=== PATIENT | male | born 1985 | race Caucasian/White ===

== ENCOUNTER 2016-07-26 10:54 | Emergency (ER) | payer OTHER ==
[~2016-07-26] VITALS: Ht 182.9 cm; Wt 7.0 kg
[2016-07-26 10:55] VITALS: TEMP 36.6; Ht 182.9 cm; Wt 7.0 kg
[2016-07-26] MEDS ORDERED: XYLOCAINE 1%/SOD BICARB 20 ML VIAL INFIL ONE (11:15)
[2016-07-26] MEDS ORDERED: DIPHTHERIA/TETANUS/PERTUSSIS 0.5 ML SYR/VIAL IM. ONE (11:15)
[2016-07-26 11:41] VITALS: BP 131/79; PULSE 76; O2SAT 100
--- NOTE | 2016-07-26 16:58 | EMERGENCY ROOM VISIT NOTE ---
ED Visit Note First contact with patient: 11:01 Chief Complaint: Left thumb laceration. History of Present Illness: Mr. Webb is a 30-year-old white male who ambulates into the ED accompanied by his son complaining of a left thumb laceration just over the lateral aspect of the thenar eminence over the first metacarpal. Patient reports approximately 2 hours ago he was opening a box with a mathis' s knife that had its blade recently replaced and sustained a laceration. He reports she control bleeding prior to arrival at the hospital but did not clean the wound. Associated with his wound he is having a stinging/burning pain in the area of the laceration. He rates his discomfort 3/10. The pain is nonradiating. The pain worsens with palpation. He has not identified any alleviating factors related to the pain. He has not taken any medication for pain prior to arrival at the hospital. He denies any associated symptoms including hand weakness/ numbness/tingling, other hand pain, painful or difficulty moving the left thumb. Review of Systems: As noted above in history of present illness. above. Past Medical History: Patient denies. Current Medications: Patient denies. Allergies to Medications: Patient denies. Social History: Patient is currently employed; he feels safe in his home environment; he admits to tobacco use. Tetanus Immunization Status: Patient reports greater than 10 years. Physical Examination: Vital Signs: Date Time Temp Pulse Resp B/P (MAP) Pulse Ox O2 Delivery O2 Flow Rate FiO2 07/26/16 11:41 76 20 131/79 100 07/26/16 10:55 36.6 62 16 140/94 100 Room Air GENERAL: 30-year-old male in mild distress due to pain, nontoxic-appearing, afebrile and hemodynamically stable. NEUROLOGICAL: Awake, alert and oriented to person, place and time. Answering questions appropriately and following commands. Normal gait. Good hand eye coordination. No focal motor or sensory deficits. SKIN: Warm, dry and pink. Left Thumb: Over the lateral aspect of the thenar eminence patient is a 3.4 cm full-thickness laceration with mild bleeding. LEFT HAND: Soft tissue injury noted above under SKIN. No gross bony deformity. Moderate tenderness over his laceration but no tenderness over the MCP or interphalangeal joint. He has full range of motion of flexion and extension, abduction and abduction of the thumb against resistance. Throughout the thumb the skin was warm and pink and capillary refill is brisk. He was able to distinguish light sensations through all dermatomes. ED Course: Patient is assessed as noted above. Wound Repair: Complexity: Basic Verbal consent was obtained after the risks and benefits were explained. The skin was prepped with betadine and a sterile field set. Wound edges of the wound was anesthetized with 2.9 ml buffered 1% lidocaine. The wound was explored for foreign bodies and none found. Copious irrigation was performed using sterile saline. With direct pressure the bleeding subsided. Debridement was not performed. The wound edges were approximated using 5-0 Ethilon with 7 simple interrupted sutures. Hemostasis and excellent approximation was achieved. Antibacterial ointment and a sterile dressing applied. No complications and the patient tolerated the procedure well. Patient was educated about tonight's findings and instructed on his treatment plan; he verbalizes understanding and agreement with this plan. Clinical Impression: Laceration of the left thumb. Disposition: Patient discharged home in stable condition; prior to departure he was reassessed and subjectively reported he was feeling better and rated his discomfort 2/10. Plan: Comfort measures, wound care, and signs of infection were discussed with the patient. Patient was encouraged to follow-up with PCP or return to the ED for signs of infection and/or suture removal in 10-12 days.
== END 2016-07-26 11:42 | disposition home or self-care (01) ==
LOC: C.EDB 10:55 → C.EDD 11:42
DX: S61.012A Laceration without foreign body of left thumb without damage to nail, initial encounter (principal); W26.0XXA Contact with knife, initial encounter; Z72.0 Tobacco use

== ENCOUNTER 2016-08-07 20:55 | Emergency (ER) | payer OTHER ==
[~2016-08-07] VITALS: Ht 182.9 cm; Wt 72.6 kg
[2016-08-07 20:57] VITALS: Ht 182.9 cm; Wt 72.6 kg
[2016-08-07 21:41] VITALS: BP 121/76; PULSE 58; TEMP 36.6; O2SAT 100
--- NOTE | 2016-08-08 00:32 | EMERGENCY ROOM VISIT NOTE ---
ED Visit Note First contact with patient: 21:07 CHIEF COMPLAINT: Removal of sutures HISTORY OF PRESENT ILLNESS: This 30-year-old male patient presents to the emergency department for removal of sutures from their left hand. The sutures were placed 12 days ago. There have been no signs of infection. The patient denies any pain. REVIEW OF SYSTEMS: A review of systems was performed with positives and pertinent negatives listed in the history of present illness. All other systems were reviewed and are negative. ALLERGIES: No known drug allergies MEDICATIONS: Unchanged from previous visit. PMH: Unchanged from previous visit. SOCIAL HISTORY: The patient lives locally with family PHYSICAL EXAM: VITALS: Vitals are noted on the nurse's note and reviewed by myself. Vital signs stable. GENERAL: This is a 30-year-old male, in no acute distress, nondiaphoretic, well- developed well-nourished. SKIN: There is a well-healing sutured wound on the left palm with no signs of infection. EMERGENCY DEPARTMENT COURSE: The patient was evaluated as above. Sutures were removed from the left palm with no dehiscence. There is no evidence of infection. Scar reduction measures were discussed the the patient. They verbalized understanding and were discharged home in good condition. DIAGNOSIS: Encounter for suture removal DISCHARGE INSTRUCTIONS & TREATMENT: Wash the remaining crusts off the wound. Keep the wound covered with SPF for the next 6 months to reduce scarring. Once the wound has fully healed, you may apply Vitamin E oil, cocoa butter, or any over the counter scar reducing formulations daily. Current/Historical Medications No Active Prescriptions or Reported Meds Allergies Coded Allergies: No Known Allergies (Unverified , 07/26/16) Vital Signs Date Time Temp Pulse Resp B/P (MAP) Pulse Ox O2 Delivery O2 Flow Rate FiO2 08/07/16 21:41 36.6 58 16 100 08/07/16 20:57 36.6 58 16 121/76 100 Room Air Departure Information Impression Primary Impression: Encounter for removal of sutures Dispostion Home / Self-Care Condition GOOD Prescriptions No Active Prescriptions or Reported Meds Referrals Stone Rivero M.D. (PCP) Forms HOME CARE DOCUMENTATION FORM, IMPORTANT VISIT INFORMATION Patient Instructions [facility]
== END 2016-08-07 21:30 | disposition home or self-care (01) ==
LOC: C.EDB 21:00 → C.EDD 21:30
DX: S61.412D Laceration without foreign body of left hand, subsequent encounter (principal); X58.XXXD Exposure to other specified factors, subsequent encounter